=== PATIENT | male | born 1950 | race Caucasian/White ===

== ENCOUNTER 2025-08-03 12:43 | Emergency (ER) | payer OTHER ==
[~2025-08-03] VITALS: Ht 180.3 cm; Wt 92.0 kg
[2025-08-03] MEDS ORDERED: MINERAL OIL 133 ML BTL PR ONE (14:30)
[2025-08-03] MEDS ORDERED: LACTULOSE 20 GM/30 ML CUP PO ONE (14:30)
[2025-08-03 15:40] VITALS: BP 170/83
== END 2025-08-03 15:41 | disposition home or self-care (01) ==
LOC: ED 12:43
DX: K59.00 Constipation, unspecified (principal); I10 Essential (primary) hypertension; E78.00 Pure hypercholesterolemia, unspecified
CPT/HCPCS: 99283